=== PATIENT | male | born 1985 | race Two or more races ===

== ENCOUNTER 2024-11-13 16:48 | Emergency (ER) | payer BC, SELFPAY ==
[2024-11-13 17:46] VITALS: BP 214/132; BP 228/136; PULSE 102; RESP 18; TEMP 36.7; O2SAT 98
[2024-11-13 17:48] VITALS: BMI 37.5
--- NOTE | 2024-11-13 18:45 | XR_ITS ---
Examination: Hand, right 3 views Technique: Hand AP, oblique, lateral 3 views Date and time of exam: November 13, 2024 1855 hours INDICATIONS: Right hand second and third digit swelling beginning 2 days ago. FINDINGS: Soft tissue swelling dorsal to the second and third metacarpophalangeal joints No fracture or dislocation No foreign body Old deformity distal fifth metacarpal Cortical erosions involving the distal aspect of the proximal phalanx second digit noticed on the oblique view IMPRESSION: Suspicious for osteomyelitis distal aspect proximal phalanx second digit, recommend MRI hand without contrast follow-up
--- NOTE | 2024-11-13 18:46 | PD.EDSKIN ---
ED Skin Abcess FB-RME/HPI General Chief complaint: Skin/Abscess/Foreign Body Stated complaint: Right hand abscess X 3 days, left leg abscess X 4 Time Seen by Provider: 11/13/24 18:37 Source: patient Arrival date/time: 11/13/24 16:48 Mode of arrival: ambulatory Limitations: no limitations (Dislocated right index finger.) RME / HPI RME / HPI narrative: Complains of pain to the right hand at the knuckle of the index finger that has been ongoing x 1 month now complains of bruising purulence. Patient tells me he has a dislocated index finger and has been dislocated for quite some time MD complaint: abscess/boil (MCP #2) Location: generalized Severity scale (1-10): 5 Quality: burning Consistency: constant Relieving factors: none Associated symptoms: denies other symptoms Treatments prior to arrival: none Related Data Previous Rx's ?Medication ?Instructions ?Recorded hydrochlorothiazide 12.5 mg tablet 12.5 mg PO QAM #30 tabs 05/03/23 lisinopril 10 mg tablet 10 mg PO QDAY #30 tabs 05/03/23 meloxicam 7.5 mg tablet 7.5 mg PO QDAY #10 tabs 05/03/23 metformin 500 mg tablet 500 mg PO BID #30 tabs 05/03/23 Allergies Allergy/AdvReac Type Severity Reaction Status Date / Time No Known Allergies Allergy Verified 11/13/24 16:55 Review of Systems Constitutional Constitutional: Reports system reviewed and no additional complaints, except as documented Eyes Eyes: Reports system reviewed and no additional complaints, except as documented, Denies dry eyes, Denies exophthalmos and Reports floaters Cardiovascular Cardiovascular: Denies chest pain with activity and Denies claudication ED Exam Narrative Physical exam: Right hand positive for a abscess-like process that appears to be oozing purulence. There is decreased range of motion secondary to subjective pain. There is no apparent bony deformity. Neurovascular is intact. The right foot and the right ankle are erythematous. There is erythema present distally to include digits #2 3 and 4 of the right foot. There is decreased range of motion secondary to subjective pain. Neurovascular it is intact. General Limitations: Present no limitations (Dislocated right index finger.) General appearance: Present alert and in no apparent distress Head Head exam: Present atraumatic Eye Eye exam: Present normal appearance, PERRL and EOMI ENT ENT exam: Present normal exam, normal oropharynx and mucous membranes moist Neck Neck exam: Present normal inspection, full ROM and trachea midline Chest Chest inspection: Present normal inspection Respiratory Respiratory exam: Present normal lung sounds bilaterally Cardiovascular Cardiovascular exam: Present regular rate, normal rhythm and normal heart sounds Abdominal Exam Abdominal exam: Present soft, tenderness and normal bowel sounds Rectal Exam Rectal exam: Present deferred Extremities Exam Extremities exam: Present normal inspection, full ROM and tenderness (There is tenderness to palpation at the right MCP #2. There is decreased range of motion secondary to subjective pain. There is a abscess-like process at MCP #2. Neurovascular is intact. There is also tenderness to palpation on the right foot. There is no apparent trauma. There is erythema dis) Back Exam Back exam: Present normal inspection and full ROM Neurological Exam Neurological exam: Present alert and oriented X3 Psychiatric Psychiatric exam: Present normal affect and normal mood Skin Skin exam: Present warm, dry and intact Course Course Course Narrative: Patient will have a x-ray of his right hand. Patient will also have a CBC, CMP, a CT of the right hand with contrast, blood cultures, CMP, CRP, ESR, a procalcitonin. Patient will also have Zosyn as well as vancomycin IV. Patient was given Klonopin 0.1 mg p.o. for his blood pressure. As per Dr. Valenzuela patient should have a uric acid and a x-ray of his right foot as well as his right ankle. Quality Measures none (NA) Orders Category Date Time Status COVID-19 Screening Questionnaire NOW Care 11/13/24 23:[address] Screening NOW Care 11/13/24 21:[address] hand RT w con Stat Exams 11/13/24 21:21 Completed XR ankle RT 2V Stat Exams 11/14/24 01:38 Taken XR foot comp RT min 3V Stat Exams 11/14/24 01:38 Taken XR hand comp RT min 3V Stat Exams 11/13/24 18:45 Completed Blood Culture (Lab) Stat Lab 11/13/24 21:18 Received CBC Stat Lab 11/13/24 21:18 Completed CMP [Comprehensive Metabolic Panel] Stat Lab 11/13/24 21:18 Completed CRP [C-Reactive Protein] Stat Lab 11/13/24 21:18 Completed ESR [Sed Rate (ESR)] Stat Lab 11/13/24 21:18 Completed Procalcitonin Stat Lab 11/13/24 21:18 Completed Uric Acid Stat Lab 11/14/24 01:39 Ordered Piper/Tazo 3.375 gm Premix [Zosyn] Med 11/13/24 21:53 Discontinued 3.375 gm in 50 ml IV X1 Piper/Tazo 2.25 gm [Zosyn] Med 11/13/24 21:22 Discontinued 2.25 gm in 50 ml IV X1 Vancomycin Inj 1,000 mg Med 11/13/24 21:22 Discontinued Sodium Chloride 0.9% 250 ml [Ns] 250 ml IV X1 cloNIDine HCL [Catapres] Med 11/13/24 21:00 Discontinued 0.1 mg PO X1 ONE DONE Vital Signs Vital signs: Vital Signs Temperature 98.1 F 11/13/24 17:46 Pulse Rate 102 H 11/13/24 17:46 Respiratory Rate 18 11/13/24 17:46 Blood Pressure 228/136 H 11/13/24 17:46 Pulse Oximetry (%) 98 11/13/24 17:46 Oxygen Delivery Method Room Air 11/13/24 17:46 Pulse ox room air is 98% Skin / Abscess / Foreign Body MDM Narrative MDM Narrative:: Patient for Dr. Ferris should be transferred ER to ER with Dr Butler does not work with hands and fingers. Patient data External records reviewed:: Other (specify) (NA) Clinical information provided by:: patient Social determinants that could affect healthcare access:: none (NA) How is presenting disease/condition affected by chronic disease/condition?: exacerbated by (DM2) Evaluation data The following diagnostics were reviewed and interpreted by me:: radiology exam(s) Lab and/or radiology exams considered but not ordered:: There is a suspicion for osteomyelitis digit #2 distally. Interpretation Summary: NA Medications / Prescriptions Medications or Prescriptions considered but not ordered:: NA Medication administrations:: Medication Administration History Discontinued Medications Clonidine (Clonidine Hcl 0.1 Mg Tablet) 0.1 mg PO X1 ONE Stop: 11/13/24 21:01 Last Admin: 11/13/24 21:52 Dose: 0.1 mg Documented By: CHARLEE Piperacillin/Tazobactam/Dextrose (Zosyn) 2.25 gm in 50 mls @ 100 mls/hr IV X1 ONE Stop: 11/13/24 21:51 Last Admin: 11/13/24 21:58 Dose: Not Given Documented By: MOE Non-Admin Reason: Discontinued Vancomycin HCl 1,000 mg/ (Sodium Chloride) 250 mls @ 150 mls/hr IV X1 ONE Stop: 11/13/24 23:01 Last Infusion: 11/13/24 23:59 Dose: Infused Documented By: Admin: 11/13/24 21:54 Dose: 150 mls/hr Documented By: MOE Piperacillin/Tazobactam/Dextrose (Zosyn) 3.375 gm in 50 mls @ 100 mls/hr IV X1 ONE Stop: 11/13/24 22:22 Last Infusion: 11/14/24 01:22 Dose: Infused Documented By: Admin: 11/14/24 00:06 Dose: 100 mls/hr Documented By: BIENVENIDO NA Consultations Consultation(s) initiated? (list below): No Diagnosis Skin/Abscess Differential Diagnosis: abscess of skin or subcutaneous tissue, viral exanthem, dermatophytosis, herpes zoster, cellulitis and other Most likely diagnosis given after review of the tests above:: Osteomyelitis Admission Indicated Admission indicated?: indicated Explain why admission is indicated or not indicated:: Osteomyelitis Admission Request Was there a request for admission?: Yes Admission Attestation Admission request attestation: Discussed case with [] from Hospitalist service regarding admission. Discussed patients ED course, exam findings, labs, and radiology results. The Hospitalist [agrees,declines] to accept the patient for admission. Disposition Plan Disposition Plan: Admit Discharge Plan Plan Patient Disposition: [facility] Service Needed for Transfer: Orthopedics Discharge Disposition comment: Transferred in no apparent distress Patient condition on transfer: Stable Prescriptions/Referrals Prescriptions/Med Rec: No Action lisinopril 10 mg tablet 10 mg PO QDAY Qty: 30 0RF hydrochlorothiazide 12.5 mg tablet 12.5 mg PO QAM Qty: 30 0RF metformin 500 mg tablet 500 mg PO BID Qty: 30 0RF meloxicam 7.5 mg tablet 7.5 mg PO QDAY Qty: 10 0RF Referrals: No Primary/Family,Physician [Primary Care Provider] - In 1 week Problem List Clinical Impression: Osteomyelitis Patient/Caregiver Discharge Instructions Discharge Activity: activity as tolerated Print Language: Portuguese Stand Alone Forms: Martha Award Info., Patient Portal Info Letter PA/VETERINARY LIVESTOCK INSPECTOR Supervising Physician PA/VETERINARY LIVESTOCK INSPECTOR Supervising Physician: Gunnar
[2024-11-13 20:37] VITALS: BP 192/115; BP 211/133; PULSE 102; RESP 18; O2SAT 98
--- NOTE | 2024-11-13 21:21 | XR_ITS ---
Examination: CT right hand, without contrast. 2-D sagittal reconstructions. 2-D coronal reconstructions. 3-D reconstructions. Date and time of exam:November 13, 2024 11:36 PM INDICATIONS: Redness swelling and pain involving the second and third digits beginning 2 days ago CTDI: vol (mGy):2.99 DLP: (mGycm):86.5 Technique: Multiple 1.25 mm axial sections of the right hand without intravenous contrast have been obtained. 2-D sagittal and coronal reconstructions have been obtained. 3-D reconstructions have been obtained. Low dose protocols were performed. One or more of the following dose reduction techniques were used; automated exposure control, adjustment of the mA and/or KV according to patient size, use of iterative reconstruction technique. Findings: Erosion involving the distal shaft of the proximal phalanx second digit, images 35 through 32 of 54 No foreign body Soft tissue swelling about the proximal phalanges second and third digits and soft tissue swelling dorsal to the second metacarpophalangeal joint No murphy fluid filled abscess No foreign body No fracture IMPRESSION: Osteomyelitis Soft tissue swelling about the second and third digits, MRI hand without contrast follow up would better assess for soft tissue infection/abscess distal shaft of the proximal phalanx second digit
[2024-11-13 21:42] LABS: Basophils # (Auto) 0.1 Thou/mm3 (0.0-0.2); Basophils % (Auto) 1 % (0-2.5); Eosinophils # (Auto) 0.4 Thou/mm3 (0.0-0.5); Eosinophils % (Auto) 3 % (0-10); Hematocrit 42.1 % (41.0-53.0); Hemoglobin 14.7 g/dL (13.5-16.0); Immature Granulocytes Auto 0.07 Thou/mm3 (0.00-0.00); Lymphocytes # (Auto) 2.7 Thou/mm3 (1.0-4.8); Lymphocytes % (Auto) 21 % (10-50); Mean Corpuscular HGB Conc 34.9 g/dl (31.0-37.0); Mean Corpuscular Hemoglobin 28.1 pg (25.0-35.0); Mean Corpuscular Volume 80 fL (80-100); Monocytes # (Auto) 0.7 Thou/mm3 (0.0-0.8); Monocytes % (Auto) 5 % (0-12); Neutrophils # (Auto) 9.0 Thou/mm3 (1.8-7.7); Neutrophils % (Auto) 70 % (37-80); Nucleated Red Blood Cell # 0.00 Thou/mm3 (0.00-0.00); Nucleated Red Blood Cell % 0 /100 WBC (0); Platelet Count 248 Thou/mm3 (140-440); RDW Standard Deviation 39.2 fL (35.1-43.9); Red Blood Count 5.24 Miln/mm3 (4.50-5.90); White Blood Count 13.0 Thou/mm3 (3.8-10.6)
[2024-11-13 21:52] VITALS: BP 199/121; PULSE 98
[2024-11-13] MEDS: Vancomycin Inj 1,000 MG in SODIUM CHLORIDE 0.9% 250 ML 250 ML 150 MG IV (21:54)
[2024-11-13 22:31] LABS: Sed Rate (ESR) 37 mm/hr (0-15)
[2024-11-13 22:45] LABS: Alanine Aminotransferase 11 U/L (10-49); Albumin, Serum 4.4 gm/dL (3.5-5.0); Albumin/Globulin Ratio 1.3 (1.2-2.2); Alkaline Phosphatase 95 U/L (46-116); Anion Gap 8 (7-16); Aspartate Amino Transferase 12 U/L (0-34); BUN/Creatinine Ratio 6 Ratio (12-20); Bilirubin,Total 0.4 mg/dL (0.3-1.2); Blood Urea Nitrogen 7 mg/dL (9-23); C-Reactive Protein 2.9 mg/dL (0.0-0.9); Calcium 9.6 mg/dL (8.3-10.6); Calcium (Corrected) 9.6 mg/dL (8.5-10.1); Carbon Dioxide 27.7 mMol/L (20.0-31.0); Chloride 100 mMol/L (98-107); Creatinine (Component) 1.1 mg/dL (0.6-1.3); Estimated Creatinine Clearance 104.0 mL/min (>60); Globulin 3.4 gm/dL (2.3-3.5); Glucose 330 mg/dL (74-106); Osmolality,Calculated 282 (275-295); Potassium 3.7 mMol/L (3.4-5.1); Procalcitonin 0.09 ng/ml (0.0-0.49); Sodium 136 mMol/L (136-145); Total Protein 7.8 gm/dL (5.7-8.2); eGFR > 60 See Note
[2024-11-14] MEDS: PIPER/TAZO 3.375 GM PREMIX 3.375 GM/50 ML BAG IV (00:06)
--- NOTE | 2024-11-14 01:38 | XR_ITS ---
Examination: Foot, right, 3 views Technique: AP, oblique, lateral views foot, 3 views Date and time of exam: Abdomen 2024, 0158 hours INDICATIONS: Redness swelling and pain involving the foot beginning 4 days ago. FINDINGS: Significant arthritic change first metatarsophalangeal joint including erosion at the base of the proximal phalanx first digit and ossification versus calcification in the soft tissue Mild bunion deformity. No acute fracture IMPRESSION: Significant arthritic change first metatarsophalangeal joint, differential would include gouty arthropathy.
--- NOTE | 2024-11-14 01:38 | XR_ITS ---
Examination: Right ankle 2 views TECHNIQUE: AP lateral right ankle 2 views. Date and time: November 14, 2024, 0201 hours INDICATIONS: Ankle swelling and pain beginning 4 days ago. FINDINGS: Significant osteopenia Moderate osteoarthritis tibiotalar joint Ossification in the Achilles insertion Soft tissue swelling. No acute fracture IMPRESSION: No acute fracture
--- NOTE | 2024-11-14 01:47 | PD.ORTHCON ---
HPI Consult details Reason for consultation narrative: Swelling right index finger History of present illness: Patient is a 39-year-old with diabetes and history of gout. Injury to right index finger several years ago. Has had swelling over the MCP joint right index finger and has not been near past stuck a pin in it and had some drainage he had increasing drainage over the weekend and presented to the emergency room. As I talked to him I looked at his feet and he had marked swelling right ankle right foot and this is of relative recent onset without injury Past Medical History Past Medical History CARDIAC: Positive Hypertension; Negative Cardiac Disorders or Congestive Heart Failure RESPIRATORY: Negative Chronic Obstructive Pulmonary Disease (COPD) or Asthma GENITOURINARY: Negative Renal Disease MUSCULOSKELETAL: Positive Musculoskeletal Disorders and Gout ENDOCRINE: Positive Diabetes Mellitus Type 2; Negative Diabetes Mellitus Type 1 HEMATOLOGIC: Negative Sickle Cell Disease Surgical History SURGICAL: Positive Eye Surgery Social History SMOKING STATUS: Never smoker Meds Home Medications and Allergies Allergies Allergy/AdvReac Type Severity Reaction Status Date / Time No Known Allergies Allergy Verified 11/13/24 16:55 Exam Vital Signs Temp Pulse Resp BP Pulse Ox O2 Del Method 98.1 F 98 18 199/121 H 98 Room Air 11/13/24 17:46 11/13/24 21:52 11/13/24 20:37 11/13/24 21:52 11/13/24 20:37 11/13/24 17:46 Temperature 98.1 Narrative Exam Patient has swelling over MCP joint right index finger it is extremely circumcised there is no surrounding redness no active drainage. Does have swelling over the PIP of left long finger in addition swelling MCP joint right long finger. Does have stiffness swelling of the PIP joint right index finger which goes along with the dislocation describes several years ago. Swelling right ankle right foot with edema Results - Ortho Labs 11/13/24 21:18 11/13/24 21:18 Labs: Short CBC 11/13/24 Range/Units 21:18 WBC 13.0 H (3.8-10.6) Thou/mm3 Hgb 14.7 (13.5-16.0) g/dL Hct 42.1 (41.0-53.0) % Plt Count 248 (140-440) Thou/mm3 BMP 11/13/24 21:18 Sodium 136 Potassium 3.7 Chloride 100 Carbon Dioxide 27.7 BUN 7 L Creatinine 1.1 Glucose 330 H Calcium 9.6 Liver Function 11/13/24 Range/Units 21:18 Total Bilirubin 0.4 (0.3-1.2) mg/dL AST 12 (0-34) U/L ALT 11 (10-49) U/L Alkaline Phosphatase 95 (46-116) U/L Albumin 4.4 (3.5-5.0) gm/dL White count 13,000. I do not see CRP sed rate but Felix said both elevated. Assessment & Plan Additional Assessment Additional comments: And has the appearance of tophaceous gout. Did receive vancomycin and Zosyn. I would anticipate much more redness swelling if it was abscess. I am wondering if the white count might be coming from his right ankle right foot. Plan Needs uric acid. Needs three-view ankle 3 view foot plus followed by CT scan right foot ankle right foot. Complex set of problems including right hand left hand right ankle right foot history of diabetes gout. He is going to need a higher level of care because of complexity recommend [facility].
--- NOTE | 2024-11-14 02:29 | PC.NURSE ---
[facility] contacted for possible transfer- packet faxed imaging forwarded
--- NOTE | 2024-11-14 02:52 | PD.EDADDENDU ---
Emergency Room Addendum Addendum Narrative: 0200: Care assumed from Felix Pichardo PA-C. Past medical, surgical, social and family history reviewed. Vitals and home medications reviewed. Results and treatment plan discussed. I will assume the care of the patient at this time and will follow the patient, pending transfer for hand surgery. Please refer to the emergency department record for history and examination from initial visit. 0330: Discussed case with [facility] transfer center. Discussed patients ED course, exam findings, labs, and radiology results. Awaiting callback.
[2024-11-14 03:09] LABS: Uric Acid 8.5 mg/dL (3.7-9.2)
--- NOTE | 2024-11-14 03:21 | ESPR_ITS ---
Addendum Progress Note Addendum Date of report being addended: 11/14/24 Narrative: 0300: Case signed out to me by Felix Pichardo for transfer follow up. 0320: Spoke to [facility]. States they are on a case by case basis. Currently only accepting bonner, trauma, neuro. Will have case reviewed by ortho and return call. 0426: [facility] denies transfer. 0600: Patient signed out to [facility] Pritchett.
--- NOTE | 2024-11-14 03:34 | PC.NURSE ---
[facility] contacted for possible transfer needing hand specialty- packed faxed and they stated they would review an reach back to providers
[2024-11-14 04:07] VITALS: BP 155/92; PULSE 84; RESP 18; TEMP 36.9; O2SAT 98
--- NOTE | 2024-11-14 04:24 | PC.NURSE ---
KRISTINA FROM [facility] CALLED AND THEY ARE DECLINE THE PT AT THIS TIME DUE TO CAPACITY.
[2024-11-14 07:07] VITALS: BP 175/100; PULSE 83; RESP 16; TEMP 36.9; O2SAT 97
--- NOTE | 2024-11-14 07:16 | EDNOTE_ITS ---
<Statement entered by Michelle Louis MD - 11/27/24 18:58> As co-signing physician, I was present and available for consult prn. I concur with the plan and care as documented by the midlevel provider. ED Skin Abcess FB-RME/HPI General Chief complaint: Skin/Abscess/Foreign Body Stated complaint: Right hand abscess X 3 days, left leg abscess X 4 Time Seen by Provider: 11/13/24 18:37 Source: patient Arrival date/time: 11/13/24 16:48 39-year-old male with a history of hypertension, gout, type 2 diabetes presents to the emergency room with a chief complaint of an abscess to his right index finger x 3 days and swelling and an abscess to his left foot x 4 days. Mode of arrival: ambulatory Limitations: no limitations (Dislocated right index finger.) RME / HPI RME / HPI narrative: Complains of pain to the right hand at the knuckle of the index finger that has been ongoing x 1 month now complains of bruising purulence. Patient tells me he has a dislocated index finger and has been dislocated for quite some time MD complaint: abscess/boil (MCP #2) Location: generalized Relieving factors: none Associated symptoms: denies other symptoms Related Data Previous Rx's ?Medication ?Instructions ?Recorded hydrochlorothiazide 12.5 mg tablet 12.5 mg PO QAM #30 tabs 05/03/23 lisinopril 10 mg tablet 10 mg PO QDAY #30 tabs 05/03 meloxicam 7.5 mg tablet 7.5 mg PO QDAY #10 tabs 04/16 01/06 metformin 500 mg tablet 500 mg PO BID #30 tabs 05/03 cephalexin 500 mg capsule 500 mg PO QID 7 days #28 cap s 11/14/24 Allergies Allergy/AdvReac Type Severity Reaction Status Date / Time No Known Allergies Allergy Verified 11/13/24 16:55 Review of Systems Review of Systems Systems Reviewed: All systems reviewed, normal except as documented Constitutional Constitutional: Reports system reviewed and no additional complaints, except as documented, Denies fatigue, Denies fever(s), Denies headache(s) and Denies weakness Eyes Eyes: Reports system reviewed and no additional complaints, except as documented, Denies blurry vision and Denies change in vision ENT Ears, Nose, Mouth, and Throat: Reports system reviewed and no additional complaints, except as documented, Denies otalgia, Denies headache(s), Denies nasal congestion, Denies throat swelling and Denies vertigo Cardiovascular Cardiovascular: Reports system reviewed and no additional complaints, except as documented, Denies chest pain, Denies dyspnea and Denies dyspnea on exertion Respiratory Respiratory: Reports system reviewed and no additional complaints, except as documented, Denies chest congestion, Denies cough, Denies dyspnea, Denies dyspnea on exertion and Denies wheezing Gastrointestinal Gastrointestinal: Reports system reviewed and no additional complaints, except as documented, Denies abdominal pain, Denies cramping, Denies nausea and Denies vomiting Genitourinary Genitourinary: Reports system reviewed and no additional complaints, except as documented, Denies dysuria and Denies hematuria Musculoskeletal Musculoskeletal: Reports system reviewed and no additional complaints, except as documented, Reports arthralgias, Denies back pain, Reports joint swelling and Reports limited range of motion Integumentary/Breasts Skin/Breast: Reports system reviewed and no additional complaints, except as documented and Denies wounds Neurologic Neurologic: Reports system reviewed and no additional complaints, except as documented, Denies confusion, Denies headache(s), Denies lack of coordination, Denies vertigo and Denies weakness Psychiatric Psychiatric: Reports system reviewed and no additional complaints, except as documented, Denies anxiety, Denies confusion, Denies depression, Denies paranoia, Denies suicidal ideation and Denies tactile hallucinations Endocrine Endocrine: Reports system reviewed and no additional complaints, except as documented and Denies fatigue Hematologic/Lymphatic Hematologic/Lymphatic: Reports system reviewed and no additional complaints, except as documented and Denies lymphadenopathy Allergic/Immunologic Allergic/Immunologic: Reports system reviewed and no additional complaints, except as documented, Denies throat swelling, Denies urticaria and Denies wheezing Past Medical History Past Medical History CARDIAC: Positive Hypertension; Negative Cardiac Disorders or Congestive Heart Failure RESPIRATORY: Negative Chronic Obstructive Pulmonary Disease (COPD) or Asthma GENITOURINARY: Negative Renal Disease MUSCULOSKELETAL: Positive Musculoskeletal Disorders and Gout ENDOCRINE: Positive Diabetes Mellitus Type 2; Negative Diabetes Mellitus Type 1 HEMATOLOGIC: Negative Sickle Cell Disease Surgical History SURGICAL: Positive Eye Surgery Social History SMOKING STATUS: Never smoker ED Exam General Limitations: Present no limitations (Dislocated right index finger.) General appearance: Present alert and in no apparent distress Head Head exam: Present atraumatic Eye Eye exam: Present normal appearance, PERRL and EOMI ENT ENT exam: Present normal exam, normal oropharynx and mucous membranes moist Neck Neck exam: Present normal inspection, full ROM and trachea midline Chest Chest inspection: Present normal inspection and symmetric chest wall rise Respiratory Respiratory exam: Present normal lung sounds bilaterally Cardiovascular Cardiovascular exam: Present regular rate, normal rhythm and normal heart sounds Abdominal Exam Abdominal exam: Present soft and normal bowel sounds Extremities Exam Extremities exam: Present normal inspection and full ROM Expanded Upper Extremity Exam Shoulder exam: Present normal inspection Arm exam: Present normal inspection Elbow exam: Present normal inspection Forearm/Wrist exam: Present normal inspection Hand exam: Present normal inspection, full ROM, tenderness, swelling and erythema Hand L/R back image: 2 1. Fluid-filled erythemic abscess Expanded Lower Extremity Exam Hip/Pelvis exam: Present normal inspection Upper leg exam: Present normal inspection Knee exam: Present normal inspection Lower leg exam: Present normal inspection Ankle exam: Present normal inspection Foot/toe exam: Present normal inspection, full ROM, tenderness, swelling and erythema Top foot image: 2 1. Fluid-filled erythemic abscess Back Exam Back exam: Present normal inspection and full ROM Neurological Exam Neurological exam: Present alert, oriented X3 and CN II-XII intact Psychiatric Psychiatric exam: Present normal affect and normal mood Skin Skin exam: Present warm, dry, intact and normal color Course Course Course Narrative: Patient will have a x-ray of his right hand. Patient will also have a CBC, CMP, a CT of the right hand with contrast, blood cultures, CMP, CRP, ESR, a procalcitonin. Patient will also have Zosyn as well as vancomycin IV. Patient was given Klonopin 0.1 mg p.o. for his blood pressure. As per Dr. Valenzuela patient should have a uric acid and a x-ray of his right foot as well as his right ankle. Quality Measures none Orders Category Date Time Status COVID-19 Screening Questionnaire NOW Care 11/13/24 23:[address] Screening NOW Care 11/13/24 21:[address] hand RT w con Stat Exams 11/13/24 21:21 Completed XR ankle RT 2V Stat Exams 11/14/24 01:38 Taken XR foot comp RT min 3V Stat Exams 11/14/24 01:38 Taken XR hand comp RT min 3V Stat Exams 11/13/24 18:45 Completed Blood Culture (Lab) Stat Lab 11/13/24 21:18 Received CBC Stat Lab 11/13/24 21:18 Completed CMP [Comprehensive Metabolic Panel] Stat Lab 11/13/24 21:18 Completed CRP [C-Reactive Protein] Stat Lab 11/13/24 21:18 Completed ESR [Sed Rate (ESR)] Stat Lab 11/13/24 21:18 Completed Procalcitonin Stat Lab 11/13/24 21:18 Completed Uric Acid Stat Lab 11/14/24 02:45 Completed Piper/Tazo 3.375 gm Premix [Zosyn] Med 11/13/24 21:53 Discontinued 3.375 gm in 50 ml IV X1 Piper/Tazo 2.25 gm [Zosyn] Med 11/13/24 21:22 Discontinued 2.25 gm in 50 ml IV X1 Vancomycin Inj 1,000 mg Med 11/13/24 21:22 Discontinued Sodium Chloride 0.9% 250 ml [Ns] 250 ml IV X1 cloNIDine HCL [Catapres] Med 11/13/24 21:00 Discontinued 0.1 mg PO X1 ONE Vital Signs Vital signs: Vital Signs Temperature 98.1 F 11/13/24 17:46 Pulse Rate 102 H 11/13/24 17:46 Respiratory Rate 18 11/13/24 17:46 Blood Pressure 228/136 H 11/13/24 17:46 Pulse Oximetry (%) 98 11/13/24 17:46 Oxygen Delivery Method Room Air 11/13/24 17:46 Skin / Abscess / Foreign Body MDM Narrative MDM Narrative:: 39-year-old male with a history of hypertension, gout, type 2 diabetes presents to the emergency room with a chief complaint of an abscess to his right index finger x 3 days and swelling and an abscess to his left foot x 4 days. Patient is hemodynamically stable and in no apparent distress Patient was signed out to me by my colleagues. The patient has been here for 14 hours and has been pending transfer for his osteomyelitis in his right index finger. I spoke to [facility] and got on the phone with Dr. Sorensen a plastic hand specialist. Dr. Sorensen told me that this can be followed up outpatient. He will see this patient next week in his clinic. I gave the patient Dr. Sorensen's phone number and address to his clinic. The patient was given instructions to call Dr. Sorensen's office and schedule an appointment. Dr. Sorensen wants the patient on Keflex 500 4 times daily. A prescription was sent to the patient's pharmacy. At this point the patient does not have an elevated white count he is not septic. During my reevaluation of the patient the patient still has some swelling and pain to his joints but states he feels better. The patient was given IV antibiotics here in the emergency room. I believe the patient can safely be discharged as he agreed to the plan and states that he will call them as soon as he gets home to schedule his appointment. I spoke to my attending physician Dr. LOUIS who also agreed with the plan set in place to discharge the patient. The patient was also given strict return precautions to return to the emergency room for any evidence of worsening signs or symptoms including fever or worsening pain or symptoms. Patient data External records reviewed:: [facility] previous records Clinical information provided by:: patient Social determinants that could affect healthcare access:: none Patient has the following chronic illnesses:: Gout, type 2 diabetes, hypertension How is presenting disease/condition affected by chronic disease/condition?: e xacerbated by Evaluation data The following diagnostics were reviewed and interpreted by me:: lab results and radiology exam(s) Lab and/or radiology exams considered but not ordered:: Labs and radiology exams considered and ordered Interpretation Summary: CT of the hand-Findings: Erosion involving the distal shaft of the proximal phalanx second digit, images 35 through 32 of 54 No foreign body Soft tissue swelling about the proximal phalanges second and third digits and soft tissue swelling dorsal to the second metacarpophalangeal joint No murphy fluid filled abscess No foreign body No fracture IMPRESSION: Osteomyelitis Soft tissue swelling about the second and third digits, MRI hand without contrast follow up would better assess for soft tissue infection/abscess distal shaft of the proximal phalanx second digit Medications / Prescriptions Medications or Prescriptions considered but not ordered:: Medication given Medication administrations:: Medication Administration History Discontinued Medications Clonidine (Clonidine Hcl 0.1 Mg Tablet) 0.1 mg PO X1 ONE Stop: 11/13/24 21:01 Last Admin: 11/13/24 21:52 Dose: 0.1 mg Documented By: CHARLEE Piperacillin/Tazobactam/Dextrose (Zosyn) 2.25 gm in 50 mls @ 100 mls/hr IV X1 ONE Stop: 11/13/24 21:51 Last Admin: 11/13/24 21:58 Dose: Not Given Documented By: CB Non-Admin Reason: Discontinued Vancomycin HCl 1,000 mg/ (Sodium Chloride) 250 mls @ 150 mls/hr IV X1 ONE Stop: 11/13/24 23:01 Last Infusion: 11/13/24 23:59 Dose: Infused Documented By: Admin: 11/13/24 21:54 Dose: 150 mls/hr Documented By: MOE Piperacillin/Tazobactam/Dextrose (Zosyn) 3.375 gm in 50 mls @ 100 mls/hr IV X1 ONE Stop: 11/13/24 22:22 Last Infusion: 11/14/24 01:22 Dose: Infused Documented By: Admin: 11/14/24 00:06 Dose: 100 mls/hr Documented By: CVL Medication given Consultations Consultation(s) initiated? (list below): Yes Consultation #1 (Physician, Specialty, Details): Dr. Sorensen hand specialist at [facility] Time: 07:00 Diagnosis Skin/Abscess Differential Diagnosis: abscess of skin or subcutaneous tissue, cellulitis and other (Gout/osteomyelitis) Most likely diagnosis given after review of the tests above:: Osteomyelitis Admission Indicated Admission indicated?: not indicated Admission Request Was there a request for admission?: No Disposition Plan Disposition Plan: Discharge Discharge Attestation Discharge Attestation: The patient and all family members were given an opportunity to ask questions and understood the discharge instructions. Discharge instructions specifically effects, indications for sooner follow up or return to the emergency department, and the expected course of current diagnosis. Patient condition: Stable Discharge Plan Plan Patient Disposition: HOME (Self Care) Discharge Disposition comment: stable Patient condition on transfer: Stable Prescriptions/Referrals Prescriptions/Med Rec: New cephalexin 500 mg capsule 500 mg PO QID 7 Days Qty: 28 0RF No Action lisinopril 10 mg tablet 10 mg PO QDAY Qty: 30 0RF hydrochlorothiazide 12.5 mg tablet 12.5 mg PO QAM Qty: 30 0RF metformin 500 mg tablet 500 mg PO BID Qty: 30 0RF meloxicam 7.5 mg tablet 7.5 mg PO QDAY Qty: 10 0RF Referrals: No Primary/Family,Physician [Primary Care Provider] - In 1 week Problem List Clinical Impression: Osteomyelitis Patient/Caregiver Discharge Instructions Discharge Activity: activity as tolerated Education Materials: Osteomyelitis Dc Additional Instructions: Please follow-up with your primary care provider in the next 24 to [address] Sorensen he is a hand specialist at [facility]. I explained your case to him and he will follow-up with you in an outpatient basis. The phone number to his clinic is . Please call and make an appointment to be seen. Please let them know you were seen in the emergency room and the provider spoke with Dr. Sorensen who agreed to see you in his clinic. His facility is located at [address] [place] [address] Please picker tender your antibiotics and take them as indicated For any evidence of worsening signs or symptoms please return to the emergency room immediately. Print Language: Maori Stand Alone Forms: Martha Award Info., Work/School Release, Patient Portal Info Letter PA/MAXWELL Supervising Physician PA/METAL SLITTER Supervising Physician: Missy
== END 2024-11-14 07:27 | disposition home or self-care (01) ==
PROVIDERS: Physician Assistant; Emergency Provider Emergency Medicine
DX: E11.69 Type 2 diabetes mellitus with other specified complication (principal); M86.9 Osteomyelitis, unspecified; Z79.84 Long term (current) use of oral hypoglycemic drugs; M25.471 Effusion, right ankle; M79.89 Other specified soft tissue disorders; M79.671 Pain in right foot; M25.571 Pain in right ankle and joints of right foot
CPT/HCPCS: 36415; 73130; 73201; 73600; 73630; 80053; 84145; 84550; 85025; 85652; 86140; 87040; 96365; 96366; 96367; 99285; A4649; J2543; J3370; J7050; Q9967; A9270